=== PATIENT | female | born 1955 | race Caucasian/White ===

== ENCOUNTER → 2023-05-07 | Outpatient (CLI) | payer MEDICARE ==
--- NOTE | 2023-05-10 10:11 | MR ---
EXAMINATION TYPE: MR brain/cspine wo/w DATE OF EXAM: 05/07/2023 6:08 PM CLINICAL INDICATION:Female, 67 years old with history of G43.709,; PHH, Neck pain that radiates up in to head, migraine. COMPARISON: None. TECHNIQUE: Multi planar, multi sequence imaging was performed through the brain including: T1, T2, Inversion rec overy, Diffusion weighted imaging, and gradient echo imaging. No gadolinium was given. Multi planar, multi sequence imaging was performed utilizing: T1-weighted, T2-weighted, and turbo inv ersion recovery imaging of the cervical spine. IV Contrast: 7.5 cc Gadavist FINDINGS: The hercules-white junctions, ventricular system, and cisterns appear unremarkable. Patchy and confluent areas of high T2 signal intensity are seen within the periventricular white matter. Midline structur es show no abnormality. Diffusion-weighted imaging shows no evidence of restricted diffusion. The trevor ceptibility weighted images do not reveal any evidence for micro-hemorrhage. No abnormal postcontrast enhancement. The bone marrow signal is within normal limits. Paranasal sinuses and mastoid air cells: No significant paranasal sinus disease. Visualized orbits: Orbital contents are intact. Alignment: The cervical vertebral bodies have preserved heights. Alignment is within normal limits gi tay patient positioning. Bones: Scattered Modic endplate changes with osteophytes and disc space narrowing. Multilevel degener ative disc disease is noted and most pronounced at the C5-C7 vertebral levels.No abnormal postcontras t enhancement. Cord: The spinal cord is unremarkable with regards to their signal intensity and morphology. No abnor mal postcontrast enhancement. Discs: Multilevel disc desiccation is present. C2-C3: No significant disc pathology. The spinal canal is patent. No neural foraminal stenosis. C3-C4: No significant disc pathology. The spinal canal is patent. No neural foraminal stenosis. C4-C5: No significant disc pathology. The spinal canal is patent. No neural foraminal stenosis. C5-C6: A disc osteophyte complex is present with mild spinal canal stenosis. Bilateral facet and unc overtebral joint arthropathy are present with moderate to severe left and mild right neural foraminal stenosis. C6-C7: No significant disc pathology. The spinal canal is patent. Bilateral facet and uncovertebral joint arthropathy are present with mild left neural foraminal stenosis. The right neural foramen is p atent. C7-T1: No significant disc pathology. The spinal canal is patent. No neural foraminal stenosis. Other: None. IMPRESSION: 1. No evidence for disc herniation or significant spinal canal stenosis. No abnormal postcontrast enh ancement. 2. 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 Neural foraminal stenos is worse at C5-C6 on the left and C6-C7 on the left. IMPRESSION: 1. No evidence of intracranial mass or acute/subacute infarct. No abnormal postcontrast enhancement. 2. Nonspecific white matter changes, likely secondary to small vessel ischemic disease.
== END | disposition home or self-care (01) ==
LOC: RADMRIMAIN 16:07
PROVIDERS: ATTEND Psychiatry & Neurology Neurology
DX: G43.709 Chronic migraine without aura, not intractable, without status migrainosus (principal); G93.89 Other specified disorders of brain; M50.123 Cervical disc disorder at C6-C7 level with radiculopathy
CPT/HCPCS: 70553; 72156; A9585